=== PATIENT | female | born 1985 | race Caucasian/White ===

== ENCOUNTER 2019-11-28 07:32 | Inpatient (IN) | payer OTHER ==
[2019-11-28] MEDS: RINGERS SOLUTION,LACTATED 1,000 ML IV PRN ×2 (08:00→12:23)
[2019-11-28] MEDS ORDERED: PENICILLIN G POTASSIUM 5,000,000 UNIT in DEXTROSE 5%-WATER 100 ML IV ONE (08:12)
[2019-11-28] MEDS ORDERED: RINGERS SOLUTION,LACTATED 1,000 ML IV ONE (08:12)
[2019-11-28] MEDS ORDERED: NA PHOS,M-B/NA PHOS,DI-BA (ADULT) 133 ML ENEMA PR PRN ×2 (08:12→14:53)
[2019-11-28 08:42] LABS: ABSOLUTE EOSINOPHILS # (AUTO) 0.1 10^3/uL (0.0-0.6); ABSOLUTE LYMPHOCYTES (AUTO) 1.5 10^3/uL (0.5-4.7); ABSOLUTE MONOCYTES (AUTO) 0.5 10^3/uL (0.1-1.4); ABSOLUTE NEUT (AUTO) 5.2 10^3/uL (1.7-8.2); BASOPHILS % (AUTO) 0.3 % (0-2); HEMATOCRIT 35.6 % (36.0-47.0); HEMOGLOBIN 12.2 g/dL (12.0-15.5); LYMPHOCYTES % (AUTO) 20.5 % (13-45); MEAN CORPUSCULAR HEMOGLOBIN 30.3 pg (27.0-33.4); MEAN CORPUSCULAR HGB CONC 34.2 g/dL (32.0-36.0); MEAN CORPUSCULAR VOLUME 89 fl (80-97); MONOCYTES % (AUTO) 7.4 % (3-13); PLATELET COUNT 233 10^3/uL (150-450); RED BLOOD COUNT 4.01 10^6/uL (3.72-5.28); RED CELL DISTRIBUTION WIDTH 13.3 % (11.5-14.0); SEGMENTED NEUTROPHILS % (AUTO) 70.8 % (42-78); TOTAL CELLS COUNTED % (AUTO) 100 %; WHITE BLOOD COUNT 7.4 10^3/uL (4.0-10.5)
[2019-11-28] MEDS ORDERED: OXYTOCIN/0.9 % SODIUM CHLORIDE 30 UNIT/500 ML RTUINJ IV PRN ×2 (08:44→14:53)
--- NOTE | 2019-11-28 09:13 | Admission Physical ---
Datetime Report Generated by CPN: 11/28/2019 09:12 CURRENT ADMISSION Chief Complaint: Scheduled Induction of Labor Indication for Induction: Other Indication for Induction- Other: cholestasis of Admit Impression : Term, Intrauterine ; No Active Labor; Induction of Labor Admit Plan: Admit to Unit; Initiate Labor Induction Protocol ALLERGIES Medication Allergies: No Medication Allergies: No Known Allergies (11/28/2019) Latex: No Latex Allergies Food Allergies: avacados Environmental Allergies: none OBSTETRICAL HISTORY : 4 Para: 3 Term: 3 : 0 SAB: 0 IAB: 0 Ectopic: 0 Livin Cesareans: 0 VBACs: 0 Multiple Births: 0 Gestational Diabetes: No Rh Sensitization: No Incompetent Cervix: No DEMETRIA: No Infertility: No ART Treatment: No Uterine Anomaly: No IUGR: No Hx Previous C/S: No Macrosomia: No Hx Loss/Stillborn: No PIH: No Hx : No Placenta Previa/Abruption: No Depression/PP Depression: No PTL/PROM: No Post Hemorrhage: No Current Procedures: Ultrasound; NST SEE RECORDS Alcohol: No Marijuana : No Cocaine: No Other Illicit Drugs: No Cigarettes: Former Smoker. [id number] MEDICAL HISTORY Diabetes: No Blood Transfusion: No Pulmonary Disease (Asthma, TB): No Breast Disease: No Hypertension: No Shoe Cementer Surgery: No Heart Disease: No Hosp/Surgery: Yes Autoimmune Disorder: No Anesthetic Complications: Yes Kidney Disease: No Abnormal Pap Smear: No Neuro/Epilepsy: No Psychiatric Disorders: No Other Medical Diseases: No Hepatitis/Liver Disease: No Significant Family History: No Varicosities/Phlebitis: No Trauma/Violence : No Thyroid Dysfunction: No Medical History Comments: prior , and epidural caused her to have a hard time breathing INFECTIOUS HISTORY Gonorrhea: No Genital Herpes: No Chlamydia: No Tuberculosis: No Syphilis: No Hepatitis: No HIV/AIDS Exposure: No Rash or Viral Illness: No HPV: No PHYSICAL EXAM General: Normal Heart: Normal Lungs: Normal Abdomen: Normal Genitourinary Exam: Normal Extremities: Normal Pelvic Type: Adequate Vital Signs: Reviewed; Within Normal Limits VAGINAL EXAM Dilatation: 3 Effacement: 70 Station: -1 Contraction Comments: rare MEMBRANES Membranes: Intact FETUS A Monitoring: External US FHR Category: Category I Presentation: Vertex Admit Comment: 34yo @ 37w4d into L_D for IOL secondary to cholestasis. Pt is A positive, RI, GBS positive. also complicated by AMA and an enlarged inguinal lymphone otherwise uncomplicated medical hx. Plan is to start PCN for GBS prophylaxis and pitocin at this time. Anticipate delivery, epidural prn. Dr. Cohen is the OB director of reservations today, aware of admission and in unit at this time. PLANS FOR LABOR AND DELIVERY Labor and Delivery: None Pain Management: Natural Feeding Preference: Breast Benefit of Breast Feed Discussed: Yes Circumcision: N/A INFORMED CONSENT Assignment: Missy Cohen MD Signature: with User ID: [email or web address] : with User ID: [email or web address]
[2019-11-28 09:29] LABS: AMORPHOUS SEDIMENT,URINE TRACE /HPF; APPEARANCE,URINE SLIGHTLY-CLOUDY; BILIRUBIN,URINE NEGATIVE (NEGATIVE); COLOR,URINE YELLOW; GLUCOSE, URINE NEGATIVE (NEGATIVE); KETONES,URINE NEGATIVE (NEGATIVE); LEUKOCYTE ESTERASE,URINE MODERATE (NEGATIVE); NITRITE,URINE NEGATIVE (NEGATIVE); PROTEIN,URINE NEGATIVE (NEGATIVE); URINE SPECIFIC GRAVITY 1.014; UROBILINOGEN,URINE NEGATIVE mg/dL (<2.0)
[2019-11-28 09:48] LABS: URINE AMPHETAMINES SCREEN NEGATIVE; URINE BARBITURATES SCREEN NEGATIVE; URINE BENZODIAZEPINES SCREEN NEGATIVE; URINE COCAINE SCREEN NEGATIVE; URINE MARIJUANA (THC) SCREEN NEGATIVE; URINE METHADONE SCREEN NEGATIVE; URINE PHENCYCLIDINE SCREEN NEGATIVE
[2019-11-28] MEDS ORDERED: PENICILLIN G POTASSIUM 2,500,000 UNIT in DEXTROSE 5%-WATER 50 ML IV SCH (12:13)
[2019-11-28] MEDS ORDERED: MAGNESIUM HYDROXIDE SUSP 30 ML UDCUP PO PRN (14:53)
[2019-11-28] MEDS ORDERED: MEASLES,MUMPS&RUBELLA VACC/PF 0.5 ML VIAL SUBCUT PRN (14:53)
[2019-11-28] MEDS ORDERED: BENZOCAINE/MENTHOL AEROSOL SPRAY 56 ML TOP PRN (14:53)
[2019-11-28] MEDS ORDERED: GLYCERIN/WITCH HAZEL LEAF 1 EACH MED..WIPE TP PRN (14:53)
[2019-11-28] MEDS ORDERED: PROMETHAZINE HCL INJ 25 MG/1 ML VIAL IV PRN (14:53)
[2019-11-28] MEDS ORDERED: DIPHENHYDRAMINE HCL 25 MG CAPSULE PO PRN (14:53)
[2019-11-28] MEDS ORDERED: PSEUDOEPHEDRINE HCL 30 MG TABLET PO PRN (14:53)
[2019-11-28] MEDS ORDERED: PROMETHAZINE HCL 25 MG SUPP.RECT PR PRN (14:53)
[2019-11-28] MEDS ORDERED: ACETAMINOPHEN 325 MG TABLET PO PRN (14:53)
[2019-11-28] MEDS ORDERED: DIBUCAINE 1% OINTMENT 28 GM TP PRN (14:53)
[2019-11-28] MEDS ORDERED: PROMETHAZINE HCL 25 MG TABLET PO PRN (14:53)
[2019-11-28] MEDS ORDERED: DIPH/PERTUSS(ACELL)/TETANUS VAC/PF 0.5 ML SYR (>=10YO) IM PRN (14:53)
[2019-11-28] MEDS ORDERED: MISOPROSTOL 0.2 MG TABLET ONE (15:05)
[2019-11-28] MEDS ORDERED: OXYTOCIN/0.9 % SODIUM CHLORIDE 30 UNIT/500 ML RTUINJ ONE (15:05)
--- NOTE | 2019-11-28 15:14 | Warning Signs in Babies ---
VOD Warning Signs Datetime Report Generated by [facility]: 11/28/2019 15:14 VOD#608 -Warning Signs in Babies: Needs to be viewed. (11/28/2019 08:15:Pretty Fernando RN)
--- NOTE | 2019-11-28 15:25 | L&D Progress Notes ---
PROGRESS NOTES Datetime Report Generated by CPN: 11/28/2019 15:25 PROGRESS NOTE Impression Other: IUP @ [id number] Procedures: Artificial ROM; Sterile Vag Exam Plan: Continue Present Management; Induction Informed Consent Obtained: Vaginal Delivery; Risks, Benefits and Alternatives Discussed Vital Signs : Reviewed; Within Normal Limits Comment: S: breathing with contractions, desires unmedicated delivery, agreeable to AROM at this time O: VSS, cervix and contractions as stated, pitocin @ 6mu/min, Cat I tracing A: IUP @ 37w4d IOl secondary to cholestasis-stable, progressing well AROM-large amount of clear fluid P: continue IOL, anticipate delivery VAGINAL EXAM Dilatation: 3 Effacement: 70 Station: -1 Contractions: 1.5-4 LAST VAGINAL EXAM-NURSING Nursing Exam Dilitation: 10.0 Nursing Exam Effacement: 100 Nursing Exam Station: 2 MEMBRANES Membranes: Ruptured Amniotic Fluid Color: Clear FETUS A Monitoring: External US FHR Category: Category I Presentation: Vertex SIGNATURE SIGNATURE: [id number] Assignment: Missy Cohen MD Signature: with User ID: [email or web address] : with User ID: [email or web address]
[2019-11-28] MEDS ORDERED: IBUPROFEN 800 MG TABLET ONE (15:53)
[2019-11-28] MEDS: IBUPROFEN 800 MG TABLET PO SCH ×2 (15:54→22:51)
--- NOTE | 2019-11-28 16:17 | Delivery Summary ---
Del Sum A-C Datetime Report Generated by CPN: 11/28/2019 16:16 DELIVERY PERSONNEL DELIVERY PERSONNEL: [id number] Delivery Doctor:: Missy Cohen MD Labor and Delivery Nurse:: Pretty Fernando RNlicense inspector Nurse:: Aileen Munoz RNC Nursery Nurse:: Lizz Goetz RN Ctc Operator/WHIRLEY OPERATOR: Kamryn Lopez ST Ctc Operator/WHIRLEY OPERATOR: Lyudmila Lewis, AIRCRAFT [employer]URAL REPAIR MECHANIC MATERNAL INFORMATION Delivery Anesthesia: None Medications After Delivery: Pitocin Bolus-Please Comment; Pitocin 30 Units in 500ml NS/D5W Delivery QBL: 50 Maternal Complications: Precipitous Labor (<3hrs) Complication Details: 37.4 week cholestasis of LABOR SUMMARY EDC: 12/15/2019 00:00 No. Babies in Womb: 1 Attempted: No Labor Anesthesia: None LABOR INFORMATION Reason for Induction: Other Reason for Induction- Other: cholestasis Onset of Labor: 11/28/2019 13:34 Complete Dilatation: 11/28/2019 14:43 Oxytocin: Induction Group B Beta Strep: Positive Antibiotics # of Doses: 2 Antibiotics Time of Last Dose: 1224 Name of Antibiotic Given: Penicillin Steroids Given: None Reason Steroids Not Administered: Not Applicable MEMBRANES Membranes Rupture Method: Artificial Rupture of Membranes: 11/28/2019 13:34 Length of Rupture (hr): 1.22 Amniotic Fluid Color: Clear Amniotic Fluid Amount: Large Amniotic Fluid Odor: Normal STAGES OF LABOR Stage 1 hr: 1 Stage 1 min: 9 Stage 2 hr: 0 Stage 2 min: 4 Stage 3 hr: 0 Stage 3 min: 3 Total Time in Labor hr: 1 Total Time in Labor min: 16 VAGINAL DELIVERY Episiotomy: None Laceration #1: None Laceration Extension #1: N/A Laceration Repair: Not Applicable Sponge Count Correct: N/A Sharps Count Correct: N/A CSECTION DELIVERY Primary Indication: N/A Secondary Indication: N/A CSection Incidence: N/A Labor: N/A Elective: N/A CSection Incision: N/A BABY A INFORMATION Infant Delivery Date/Time: 11/28/2019 14:47 Method of Delivery: Vaginal Nurse Controlled Delivery: No Born in Route : No : N/A Forceps: N/A Vacuum Extraction: N/A Shoulder Dystocia : No PRESENTATION/POSITION BABY A Presentation: Cephalic Cephalic Presentation: Vertex Vertex Position: Right Occipital Anterior Breech Presentation: N/A PLACENTA INFORMATION BABY A Placenta Delivery Time : 11/28/2019 14:50 Placenta Method of Delivery: Spontaneous Placenta Status: Delivered SCORES BABY A Heart Rate 1 min: >100 bpm Resp Effort 1 min: Good Cry Reflex Irritability 1 min: Cough or Sneeze or Pulls Away Muscle Tone 1 min: Active Motion Color 1 min: Blue/Pale Resuscitation Effort 1 min: Tactile Stimulation SCORE 1 MIN: 8 Heart Rate 5 min: >100 bpm Resp Effort 5 min: Good Cry Reflex Irritability 5 min: Cough or Sneeze or Pulls Away Muscle Tone 5 min: Active Motion Color 5 min: Body [place], Extremities Blue Resuscitation Effort 5 min: N/A SCORE 5 MIN: 9 Resuscitation Effort 10 min: N/A INFORMATION BABY A Gestational Age at Delivery: 37.4 Gestational Status: Early Term- 37- 38.6 Weeks Infant Outcome : Liveborn Infant Condition : Stable Sex: Female IDENTIFICATION BABY A Infant Verification Date/Time: 11/28/2019 15:09 ID Band Number: [id number] Mother's Name Verified: Yes RN Verifying Infant: Afeuston, RN and J. Niebuhr WEIGHT/LENGTH BABY A Infant Birthweight (gm): 3223 Infant Weight (lb): 7 Infant Weight (oz): 2 Infant Length (in): 20.00 Length (cm): 50.80 CORD INFORMATION BABY A No. Cord Vessels: 3 Nuchal Cord : N/A Cord Blood Taken: Yes-For Storage (Mom's Blood type +) Infant Suction: None ASSESSMENT BABY A Complications: None Physical Findings at Delivery: Within Normal Limits Respirations: Appears Normal Skin to Skin: No Skin to Skin Time (min): 60 Company Laborer/ALS Called : No Infant Care By: James Goetz RN Transferred To: Remains with Mother BABY B INFORMATION : N/A
[2019-11-28] MEDS: FERROUS SULFATE 325 MG TABLET PO SCH (18:03)
[2019-11-28] MEDS: DOCUSATE SODIUM 100 MG CAPSULE PO SCH (18:03)
[2019-11-28] MEDS: FAMOTIDINE 20 MG TABLET PO SCH (22:51)
[2019-11-29] MEDS: IBUPROFEN 800 MG TABLET PO SCH ×3 (05:04→21:30)
[2019-11-29 07:02] LABS: HEMATOCRIT 33.8 % (36.0-47.0); HEMOGLOBIN 11.6 g/dL (12.0-15.5); MEAN CORPUSCULAR HEMOGLOBIN 30.8 pg (27.0-33.4); MEAN CORPUSCULAR HGB CONC 34.3 g/dL (32.0-36.0); MEAN CORPUSCULAR VOLUME 90 fl (80-97); PLATELET COUNT 216 10^3/uL (150-450); RED BLOOD COUNT 3.76 10^6/uL (3.72-5.28); RED CELL DISTRIBUTION WIDTH 13.7 % (11.5-14.0); WHITE BLOOD COUNT 8.7 10^3/uL (4.0-10.5)
[2019-11-29] MEDS: DOCUSATE SODIUM 100 MG CAPSULE PO SCH ×2 (09:26→18:02)
[2019-11-29] MEDS: PRENATAL VITAMIN W DHA CAPSULE PO SCH (09:26)
[2019-11-29] MEDS: FERROUS SULFATE 325 MG TABLET PO SCH ×2 (09:26→18:02)
[2019-11-29] MEDS: SENNOSIDES/DOCUSATE 8.6-50 MG 1 EACH TABLET PO SCH (09:26)
[2019-11-29] MEDS: FAMOTIDINE 20 MG TABLET PO SCH ×2 (09:26→21:30)
[2019-11-29] MEDS ORDERED: URSODIOL PO SCH (10:00)
--- NOTE | 2019-11-29 10:45 | PDOC PROGRESS REPORT ---
Subjective-OB Progress Note for:: 11/29/19 - PP day #1, doing well, A+, Rubella immune, Physical Exam (OB) Vital Signs: Temp Pulse Resp BP Pulse Ox 97.8 F 65 16 113/61 98 11/29/19 07:38 11/29/19 07:38 11/29/19 07:38 11/29/19 07:38 11/29/19 07:38 Intake & Output 11/28/19 11/29/19 11/30/19 06:59 06:59 06:59 Intake Total 548 550 Balance 548 550 Weight 73.9 kg - General General Appearance: Appears well, Alert In distress: None - PIH/Pre-Eclampsia Clonus: Negative Headache: Absent Epigastric Pain: No Visual Changes: No - Lochia Lochia Amount: Scant < 10 ml Lochia Color: Rubra/Red - Abdomen Description: Soft, Round Hernia Present: No Fundal Description: Firm, Midline Fundal Height: u/u - u/2 - Respiratory Respiratory Status: No respiratory distress - Abdominal Distension: No distension Tenderness: Nontender - Genitourinary Genitourinary Note: voiding - Extremities Upper extremity: Normal inspection Lower extremities: Normal inspection - Neurological Cognition: Normal Orientation: AAOx4 - Psychological Associated symptoms: Normal affect, Normal mood - Skin Skin Temperature: Warm Skin Moisture: Dry Objective-Diagnostic Laboratory: 11/29/19 06:31 11/29/19 06:31 WBC 8.7 RBC 3.76 Hgb 11.6 L Hct 33.8 L MCV 90 MCH 30.8 MCHC 34.3 RDW 13.7 Plt Count 216 Assessment and Plan(PN) Plan:: Routine PP orders, ambulation encouraged - Time Spent with Patient Time with patient: Less than 15 minutes Medications reviewed and adjusted accordingly: Yes - Disposition Anticipated Discharge Disposition: Home, Self Care Anticipated Discharge Timeframe: within 24 hours
[2019-11-30] MEDS: IBUPROFEN 800 MG TABLET PO SCH ×2 (05:43→13:37)
[2019-11-30] MEDS: PRENATAL VITAMIN W DHA CAPSULE PO SCH (09:25)
[2019-11-30] MEDS: SENNOSIDES/DOCUSATE 8.6-50 MG 1 EACH TABLET PO SCH (09:25)
[2019-11-30] MEDS: FAMOTIDINE 20 MG TABLET PO SCH (09:26)
[2019-11-30] MEDS: DOCUSATE SODIUM 100 MG CAPSULE PO SCH (09:26)
[2019-11-30] MEDS: FERROUS SULFATE 325 MG TABLET PO SCH (09:26)
--- NOTE | 2019-11-30 09:37 | PDOC DISCHARGE SUMMARY ---
Impression - Admit/DC Date/PCP Admission Date/Primary Care Provider: 11/28/19 07:32 MANDY MURPHY MD Discharge Date: 11/30/19 - Discharge Diagnosis (1) Normal vaginal delivery Is this a current diagnosis for this admission?: Yes (2) Advanced maternal age (AMA) in Is this a current diagnosis for this admission?: Yes (3) Carrier or suspected carrier of group B Streptococcus Is this a current diagnosis for this admission?: Yes (4) Cholestasis during in third trimester Is this a current diagnosis for this admission?: Yes (5) Encounter for induction of labor Is this a current diagnosis for this admission?: Yes - Additional Information Discharge Diet: Regular Discharge Activity: Balance Activity w/Rest, Pelvic Rest Referrals: MANDY MURPYH MD [Primary Care Provider] - Prescriptions: Ibuprofen [Motrin 800 mg Tablet] 800 mg PO Q8HP PRN #60 tablet PRN Reason: Home Medications: Pnv with Ca,No.72/Iron/FA [ Plus Tablet] 1 tab PO DAILY 10/21/13 Ibuprofen [Motrin 800 mg Tablet] 800 mg PO Q8HP PRN #60 tablet 11/30/19 Results Laboratory Results: WBC 8.7 10^3/uL (4.0-10.5) 11/29/19 06:31 RBC 3.76 10^6/uL (3.72-5.28) 11/29/19 06:31 Hgb 11.6 g/dL (12.0-15.5) L 11/29/19 06:31 Hct 33.8 % (36.0-47.0) L 11/29/19 06:31 MCV 90 fl (80-97) 11/29/19 06:31 MCH 30.8 pg (27.0-33.4) 11/29/19 06:31 MCHC 34.3 g/dL (32.0-36.0) 11/29/19 06:31 RDW 13.7 % (11.5-14.0) 11/29/19 06:31 Plt Count 216 10^3/uL (150-450) 11/29/19 06:31 Lymph % (Auto) 20.5 % (13-45) 11/28/19 08:24 [place] % (Auto) 7.4 % (3-13) 11/28/19 08:24 Eos % (Auto) 1.0 % (0-6) 11/28/19 08:24 Baso % (Auto) 0.3 % (0-2) 11/28/19 08:24 Absolute Neuts (auto) 5.2 10^3/uL (1.7-8.2) 11/28/19 08:24 Absolute Lymphs (auto) 1.5 10^3/uL (0.5-4.7) 11/28/19 08:24 Absolute Monos (auto) 0.5 10^3/uL (0.1-1.4) 11/28/19 08:24 Absolute Eos (auto) 0.1 10^3/uL (0.0-0.6) 11/28/19 08:24 Absolute Basos (auto) 0.0 10^3/uL (0.0-0.2) 11/28/19 08:24 Seg Neutrophils % 70.8 % (42-78) 11/28/19 08:24 Urine Color YELLOW 11/28/19 07:47 Urine Appearance SLIGHTLY-CLOUDY 11/28/19 07:47 Urine pH 7.0 (5.0-9.0) 11/28/19 07:47 Ur Specific [place] 1.014 11/28/19 07:47 Urine Protein NEGATIVE mg/dL (NEGATIVE) 11/28/19 07:47 Urine Glucose (UA) NEGATIVE mg/dL (NEGATIVE) 11/28/19 07:47 Urine Ketones NEGATIVE mg/dL (NEGATIVE) 11/28/19 07:47 Urine Blood NEGATIVE (NEGATIVE) 11/28/19 07:47 Urine Nitrite NEGATIVE (NEGATIVE) 11/28/19 07:47 Urine Bilirubin NEGATIVE (NEGATIVE) 11/28/19 07:47 Urine Urobilinogen NEGATIVE mg/dL (<2.0) 11/28/19 07:47 Ur Leukocyte Esterase MODERATE (NEGATIVE) H 11/28/19 07:47 Urine WBC (Auto) 6 /HPF 11/28/19 07:47 Urine RBC (Auto) 2 /HPF 11/28/19 07:47 Urine Bacteria (Auto) TRACE /HPF 11/28/19 07:47 Squamous Epi Cells Auto 2 /HPF 11/28/19 07:47 Amorphous Sediment Auto TRACE /HPF 11/28/19 07:47 Urine Mucus (Auto) RARE /LPF 11/28/19 07:47 Urine Ascorbic Acid 40 (NEGATIVE) H 11/28/19 07:47 Urine Opiates Screen NEGATIVE 11/28/19 07:47 Urine Methadone Screen NEGATIVE 11/28/19 07:47 Ur Barbiturates Screen NEGATIVE 11/28/19 07:47 Ur Phencyclidine Scrn NEGATIVE 11/28/19 07:47 Ur Amphetamines Screen NEGATIVE 11/28/19 07:47 U Benzodiazepines Scrn NEGATIVE 11/28/19 07:47 Urine Cocaine Screen NEGATIVE 11/28/19 07:47 U Marijuana (THC) Screen NEGATIVE 11/28/19 07:47 RPR NONREACTIVE (NONREACTIVE) 11/28/19 08:24 Blood Type A POSITIVE 11/28/19 08:24 Antibody Screen NEGATIVE 11/28/19 08:24 Plan Plan of Treatment: follow up in 4 weeks at [facility] for post check
[2019-11-30 12:20] VITALS: BP 122/83
== END 2019-11-30 17:40 | disposition home or self-care (01) | DRG 805 ==
LOC: LR 07:32 → 2S 17:21
PROVIDERS: ADMIT Student in an Organized Health Care Education/Training Program; ATTEND Student in an Organized Health Care Education/Training Program
PROC: 10E0XZZ Delivery of Products of Conception, External Approach (ICD-10-PCS; principal; 2019-11-28)
PROC: 10907ZC Drainage of Amniotic Fluid, Therapeutic from Products of Conception, Via Natural or Artificial Opening (ICD-10-PCS; 2019-11-28)
PROC: 3E033VJ Introduction of Other Hormone into Peripheral Vein, Percutaneous Approach (ICD-10-PCS; 2019-11-28)
DX: O26.62 Liver and biliary tract disorders in childbirth (principal); K83.1 Obstruction of bile duct; Z37.0 Single live birth; O99.824 Streptococcus B carrier state complicating childbirth; O62.3 Precipitate labor; Z91.018 Allergy to other foods; Z3A.37 37 weeks gestation of pregnancy
CPT/HCPCS: 36415; 80307; 81001; 85025; 85027; 86592; 86850; 86900; 86901; J2540; J2590; J3490; J7060